=== PATIENT | female | born 1945 | race Two or more races ===

== ENCOUNTER 2020-07-27 04:24 | Emergency (ER) | payer MEDICARE, OTHER ==
[~2020-07-27] VITALS: Ht 152.4 cm; Wt 74.8 kg
[2020-07-27 04:38] VITALS: BP 144/72
== END 2020-07-27 07:02 | disposition home or self-care (01) ==
LOC: ER 04:27
DX: R04.0 Epistaxis (principal); I10 Essential (primary) hypertension; E11.9 Type 2 diabetes mellitus without complications; E03.9 Hypothyroidism, unspecified; E78.00 Pure hypercholesterolemia, unspecified; Z60.2 Problems related to living alone

== ENCOUNTER 2021-07-08 13:36 | Inpatient (IN) | payer MEDICARE, OTHER ==
[~2021-07-08] VITALS: Ht 152.4 cm; Wt 72.8 kg
[2021-07-08] MEDS ORDERED: ENALAPRILAT DIHYD. (2.5MG/2ML) 1.25 MG/ML VIAL IV ONE (14:30)
[2021-07-08 14:31] LABS: BASOPHILS # (AUTO) 0.1 K/uL (0.0-0.2); BASOPHILS % (AUTO) 0.5 % (0.0-2.0); EOSINOPHILS % (AUTO) 0.7 % (0.0-6.0); HEMATOCRIT 39 % (33-45); HEMOGLOBIN 12.5 g/dL (11.5-14.8); LYMPHOCYTES # (AUTO) 1.9 K/uL (0.8-4.8); LYMPHOCYTES % (AUTO) 19.1 % (20.0-44.0); MEAN CORPUSCULAR HGB CONC 33 g/dl (31.0-36.0); MEAN CORPUSCULAR VOLUME 77 fL (82-100); MONOCYTES # (AUTO) 0.5 K/uL (0.1-1.30); MONOCYTES % (AUTO) 5.1 % (2.0-12.0); NEUTROPHILS # (AUTO) 7.4 K/uL (1.8-8.9); NEUTROPHILS % (AUTO) 74.6 % (43.0-81.0); PLATELET COUNT (AUTO) 396 K/uL (150-450); RED BLOOD CELL COUNT(AUTO) 4.99 MIL/uL (4.0-5.2); WHITE BLOOD COUNT (AUTO) 9.9 K/uL (4.3-11.0)
[2021-07-08] MEDS ORDERED: ENALAPRILAT INJ (1.25 MG/ML) 1.25 MG/ML VIAL IV ONE ×2 (14:32→17:28)
[2021-07-08 15:23] LABS: ALANINE AMINOTRANSFERASE 18 U/L (12-78); ALBUMIN 3.8 g/dL (3.4-5.0); ALKALINE PHOSPHATASE 107 U/L (46-116); ASPARTATE AMINOTRANSFERASE 16 U/L (15-37); BILIRUBIN,DIRECT 0.1 mg/dL (0.0-0.2); BILIRUBIN,TOTAL 0.4 mg/dL (0.2-1.0); CALCIUM, SERUM 9.3 mg/dL (8.5-10.1); CARBON DIOXIDE 27 mmol/L (21-32); CHLORIDE 101 mmol/L (98-107); CREATININE 0.9 mg/dL (0.6-1.3); GLUCOSE 127 mg/dL (74-106); POTASSIUM 3.5 mmol/L (3.5-5.1); SODIUM SERUM 136 mmol/L (136-145); TOTAL PROTEIN, SERUM 8.5 g/dL (6.4-8.2); UREA NITROGEN, BLOOD 14 mg/dL (7-18)
[2021-07-08] MEDS ORDERED: DULA1.5P SQ (15:42)
[2021-07-08] MEDS ORDERED: HYDR25TA4 PO (15:42)
[2021-07-08] MEDS ORDERED: ROSU20TA32 PO (15:42)
[2021-07-08] MEDS ORDERED: EZET10TA32 PO (15:42)
[2021-07-08] MEDS ORDERED: TOLT4CAP14 PO (15:42)
[2021-07-08] MEDS ORDERED: METF-440 PO (15:42)
[2021-07-08] MEDS ORDERED: CLON0.2T PO (15:42)
[2021-07-08] MEDS ORDERED: ERGO500093 PO (15:42)
[2021-07-08] MEDS ORDERED: FLUT1DIS3 INH (15:42)
[2021-07-08] MEDS ORDERED: CHLO500T3 PO (15:42)
[2021-07-08] MEDS ORDERED: OMEP1CAP25 PO (15:42)
[2021-07-08] MEDS ORDERED: ASPI-1420 PO (15:42)
[2021-07-08] MEDS ORDERED: MECL-159 PO (15:42)
[2021-07-08] MEDS ORDERED: ICOS1CAP PO (15:42)
[2021-07-08] MEDS ORDERED: LINA145C PO (15:42)
[2021-07-08] MEDS ORDERED: GABA-532 PO (15:42)
[2021-07-08] MEDS ORDERED: INSU100V11 SQ (15:42)
[2021-07-08] MEDS ORDERED: DONE5TAB34 PO (15:42)
[2021-07-08] MEDS ORDERED: MAG HYDROX/AL HYDROX/SIMETH 30 ML UDC PO PRN (17:30)
[2021-07-08] MEDS ORDERED: ONDANSETRON HCL/PF 4 MG/2 ML VIAL IVP PRN (17:30)
[2021-07-08] MEDS ORDERED: DEXTROSE 50%-WATER 50 ML DISP.SYRIN IV PRN (17:30)
[2021-07-08] MEDS: BLOOD SUGAR DIAGNOSTIC 1 EACH STRIP VI SCH ×3 (17:30→23:14)
[2021-07-08] MEDS ORDERED: MAGNESIUM HYDROXIDE 30 ML UDC PO PRN (17:30)
[2021-07-08] MEDS ORDERED: BLOOD SUGAR DIAGNOSTIC 1 EACH STRIP IN SCH ×2 (17:30→18:00)
[2021-07-08] MEDS ORDERED: ENALAPRILAT INJ (1.25 MG/ML) 1.25 MG/ML VIAL IV PRN (17:30)
[2021-07-08] MEDS ORDERED: ASPIRIN 300 MG/SUPP.RECT RC ONE ×2 (17:30→18:00)
[2021-07-08] MEDS ORDERED: ASPIRIN 325 MG TABLET PO ONE (17:30)
[2021-07-08] MEDS ORDERED: hydrALAZINE HCL IV 20 MG VIAL IV PRN (17:30)
[2021-07-08] MEDS ORDERED: hydrALAZINE HCL IV 20 MG VIAL ONE (18:24)
[2021-07-08] MEDS ORDERED: Z GUARD REMEDY 4 OZ OINT TP PRN (19:30)
[2021-07-08] MEDS ORDERED: ENALAPRILAT DIHYD. (2.5MG/2ML) 1.25 MG/ML VIAL IV PRN (19:30)
[2021-07-08 21:00] VITALS: BP 158/87
[2021-07-08] MEDS: NIFEdipine XL (30MG) 30 MG TAB PO SCH (21:30)
[2021-07-08] MEDS: ENOXAPARIN SODIUM 40 MG/0.4 ML DISP.SYRIN SQ SCH (21:34)
[2021-07-09] VITALS (16 sets, daily range): BP systolic 151–220; BP diastolic 79–119
[2021-07-09] MEDS ORDERED: LABETALOL HCL IV 100MG VIAL IV ONE
[2021-07-09 06:17] LABS: BASOPHILS % (AUTO) 0.3 % (0.0-2.0); EOSINOPHILS % (AUTO) 0.1 % (0.0-6.0); HEMATOCRIT 36 % (33-45); HEMOGLOBIN 11.5 g/dL (11.5-14.8); LYMPHOCYTES # (AUTO) 1.9 K/uL (0.8-4.8); LYMPHOCYTES % (AUTO) 16.7 % (20.0-44.0); MEAN CORPUSCULAR HGB CONC 32 g/dl (31.0-36.0); MEAN CORPUSCULAR VOLUME 77 fL (82-100); MONOCYTES # (AUTO) 0.7 K/uL (0.1-1.30); MONOCYTES % (AUTO) 5.9 % (2.0-12.0); NEUTROPHILS # (AUTO) 8.8 K/uL (1.8-8.9); PLATELET COUNT (AUTO) 386 K/uL (150-450); RED BLOOD CELL COUNT(AUTO) 4.68 MIL/uL (4.0-5.2); WHITE BLOOD COUNT (AUTO) 11.5 K/uL (4.3-11.0)
[2021-07-09 06:22] LABS: PHOSPHORUS 4.7 mg/dL (2.5-4.9); POTASSIUM 3.7 mmol/L (3.5-5.1)
[2021-07-09] MEDS: BLOOD SUGAR DIAGNOSTIC 1 EACH STRIP VI SCH ×4 (06:30→22:09)
[2021-07-09] MEDS: INSULIN REGULAR, HUMAN 100 UNIT/ML 3 ML VIAL SQ PRN (06:35)
[2021-07-09] MEDS: BUDESONIDE RESPULE INH 0.5 MG/2 ML AMPUL.NEB NEB SCH ×2 (07:33→11:35)
[2021-07-09] MEDS: ALBUTEROL FS 2.5 MG/3 ML VIAL.NEB NEB SCH ×3 (07:34→19:50)
[2021-07-09] MEDS: DONEPEZIL 5 MG TABLET PO SCH (09:00)
[2021-07-09] MEDS: NIFEdipine XL (30MG) 30 MG TAB PO SCH (09:00)
[2021-07-09] MEDS: EZETIMIBE 10 MG TABLET PO SCH (09:00)
[2021-07-09] MEDS ORDERED: FLUTICASONE/SALMETEROL 1 DISK IH SCH (09:00)
[2021-07-09] MEDS: CLOPIDOGREL BISULFATE 75 MG TABLET PO SCH (09:00)
[2021-07-09] MEDS: ASPIRIN EC 81 MG TABLET.DR PO SCH (09:00)
[2021-07-09] MEDS: HYDROCHLOROTHIAZIDE 25 MG TABLET PO SCH (09:00)
[2021-07-09] MEDS ORDERED: GABAPENTIN 100 MG CAPSULE PO SCH (09:00)
[2021-07-09] MEDS ORDERED: LABETALOL HCL IV 100MG VIAL ONE (20:36)
[2021-07-09] MEDS: ENOXAPARIN SODIUM 40 MG/0.4 ML DISP.SYRIN SQ SCH (20:37)
[2021-07-09] MEDS: LABETALOL HCL IV 100MG VIAL IV PRN (20:57)
[2021-07-09] MEDS: ATORVASTATIN 10 MG TABLET PO SCH (22:00)
[2021-07-09] MEDS: *INSULIN REGULAR(HUMULIN R)HUM 100 UNIT/ML VIAL SQ PRN (22:07)
[2021-07-10] VITALS (48 sets, daily range): BP systolic 108–180; BP diastolic 64–107
[2021-07-10] MEDS: hydrALAZINE HCL IV 20 MG VIAL IV PRN ×2 (01:08→11:27)
[2021-07-10] MEDS: ALBUTEROL FS 2.5 MG/3 ML VIAL.NEB NEB SCH ×4 (01:56→19:28)
[2021-07-10] MEDS: LABETALOL HCL IV 100MG VIAL IV PRN (05:37)
[2021-07-10] MEDS: HYDROCHLOROTHIAZIDE 25 MG TABLET PO SCH (08:12)
[2021-07-10] MEDS: BLOOD SUGAR DIAGNOSTIC 1 EACH STRIP VI SCH ×4 (08:12→21:25)
[2021-07-10] MEDS: DONEPEZIL 5 MG TABLET PO SCH (08:41)
[2021-07-10] MEDS: ASPIRIN EC 81 MG TABLET.DR PO SCH (08:41)
[2021-07-10] MEDS: EZETIMIBE 10 MG TABLET PO SCH (08:41)
[2021-07-10] MEDS: CLOPIDOGREL BISULFATE 75 MG TABLET PO SCH (08:41)
[2021-07-10] MEDS: NIFEdipine XL (30MG) 30 MG TAB PO SCH (08:42)
[2021-07-10] MEDS: BUDESONIDE RESPULE INH 0.5 MG/2 ML AMPUL.NEB NEB SCH ×2 (08:43→17:06)
[2021-07-10] MEDS: *INSULIN REGULAR(HUMULIN R)HUM 100 UNIT/ML VIAL SQ PRN ×2 (09:35→21:26)
[2021-07-10 10:04] LABS: BASOPHILS # (AUTO) 0.1 K/uL (0.0-0.2); BASOPHILS % (AUTO) 0.5 % (0.0-2.0); EOSINOPHILS % (AUTO) 0.2 % (0.0-6.0); HEMATOCRIT 36 % (33-45); HEMOGLOBIN 11.5 g/dL (11.5-14.8); LYMPHOCYTES % (AUTO) 18.6 % (20.0-44.0); MEAN CORPUSCULAR HGB CONC 32 g/dl (31.0-36.0); MEAN CORPUSCULAR VOLUME 77 fL (82-100); MONOCYTES # (AUTO) 0.7 K/uL (0.1-1.30); MONOCYTES % (AUTO) 6.5 % (2.0-12.0); NEUTROPHILS # (AUTO) 8.1 K/uL (1.8-8.9); NEUTROPHILS % (AUTO) 74.2 % (43.0-81.0); PLATELET COUNT (AUTO) 393 K/uL (150-450); RED BLOOD CELL COUNT(AUTO) 4.61 MIL/uL (4.0-5.2); WHITE BLOOD COUNT (AUTO) 10.9 K/uL (4.3-11.0)
[2021-07-10 10:09] LABS: CALCIUM, SERUM 9.2 mg/dL (8.5-10.1); CREATININE 1.1 mg/dL (0.6-1.3); POTASSIUM 3.6 mmol/L (3.5-5.1)
[2021-07-10] MEDS: INSULIN REGULAR, HUMAN 100 UNIT/ML 3 ML VIAL SQ PRN ×3 (12:00→18:14)
[2021-07-10] MEDS: ENOXAPARIN SODIUM 40 MG/0.4 ML DISP.SYRIN SQ SCH (18:12)
[2021-07-10] MEDS: ATORVASTATIN 10 MG TABLET PO SCH (21:10)
[2021-07-11] VITALS (19 sets, daily range): BP systolic 93–194; BP diastolic 60–86
[2021-07-11] MEDS: ALBUTEROL FS 2.5 MG/3 ML VIAL.NEB NEB SCH ×5 (01:30→19:35)
[2021-07-11] MEDS: IV NS 0.9% 1,000 ML IV PRN ×2 (02:59→11:50)
[2021-07-11] MEDS: BLOOD SUGAR DIAGNOSTIC 1 EACH STRIP VI SCH ×4 (07:46→22:12)
[2021-07-11] MEDS: BUDESONIDE RESPULE INH 0.5 MG/2 ML AMPUL.NEB NEB SCH ×2 (08:00→13:02)
[2021-07-11 08:29] LABS: BASOPHILS # (AUTO) 0.1 K/uL (0.0-0.2); BASOPHILS % (AUTO) 0.7 % (0.0-2.0); EOSINOPHILS % (AUTO) 0.8 % (0.0-6.0); HEMATOCRIT 32 % (33-45); HEMOGLOBIN 10.5 g/dL (11.5-14.8); LYMPHOCYTES # (AUTO) 2.4 K/uL (0.8-4.8); LYMPHOCYTES % (AUTO) 21.8 % (20.0-44.0); MEAN CORPUSCULAR HGB CONC 33 g/dl (31.0-36.0); MEAN CORPUSCULAR VOLUME 78 fL (82-100); MONOCYTES # (AUTO) 1.1 K/uL (0.1-1.30); MONOCYTES % (AUTO) 9.6 % (2.0-12.0); NEUTROPHILS # (AUTO) 7.4 K/uL (1.8-8.9); NEUTROPHILS % (AUTO) 67.1 % (43.0-81.0); PLATELET COUNT (AUTO) 376 K/uL (150-450); RED BLOOD CELL COUNT(AUTO) 4.13 MIL/uL (4.0-5.2)
[2021-07-11 08:42] LABS: CALCIUM, SERUM 8.9 mg/dL (8.5-10.1); CREATININE 1.2 mg/dL (0.6-1.3); POTASSIUM 3.7 mmol/L (3.5-5.1)
[2021-07-11] MEDS: HYDROCHLOROTHIAZIDE 25 MG TABLET PO SCH (09:00)
[2021-07-11] MEDS: NIFEdipine XL (30MG) 30 MG TAB PO SCH (09:00)
[2021-07-11] MEDS: ASPIRIN EC 81 MG TABLET.DR PO SCH (09:37)
[2021-07-11] MEDS: CLOPIDOGREL BISULFATE 75 MG TABLET PO SCH (09:37)
[2021-07-11] MEDS: DONEPEZIL 5 MG TABLET PO SCH (09:37)
[2021-07-11] MEDS: EZETIMIBE 10 MG TABLET PO SCH (09:40)
[2021-07-11] MEDS: INSULIN REGULAR, HUMAN 100 UNIT/ML 3 ML VIAL SQ PRN (12:24)
[2021-07-11] MEDS: ATORVASTATIN 10 MG TABLET PO SCH (21:04)
[2021-07-11] MEDS: ENOXAPARIN SODIUM 40 MG/0.4 ML DISP.SYRIN SQ SCH (21:07)
[2021-07-11] MEDS: hydrALAZINE HCL IV 20 MG VIAL IV PRN (21:08)
[2021-07-11] MEDS: *INSULIN REGULAR(HUMULIN R)HUM 100 UNIT/ML VIAL SQ PRN (22:13)
[2021-07-12] VITALS (11 sets, daily range): BP systolic 164–195; BP diastolic 68–93
[2021-07-12] MEDS: ALBUTEROL FS 2.5 MG/3 ML VIAL.NEB NEB SCH ×4 (02:05→20:06)
[2021-07-12 06:34] LABS: BASOPHILS # (AUTO) 0.1 K/uL (0.0-0.2); BASOPHILS % (AUTO) 0.6 % (0.0-2.0); EOSINOPHILS % (AUTO) 1.7 % (0.0-6.0); HEMATOCRIT 32 % (33-45); HEMOGLOBIN 10.2 g/dL (11.5-14.8); LYMPHOCYTES % (AUTO) 19.5 % (20.0-44.0); MEAN CORPUSCULAR HGB CONC 32 g/dl (31.0-36.0); MEAN CORPUSCULAR VOLUME 79 fL (82-100); MONOCYTES # (AUTO) 0.9 K/uL (0.1-1.30); MONOCYTES % (AUTO) 8.6 % (2.0-12.0); NEUTROPHILS # (AUTO) 7.1 K/uL (1.8-8.9); NEUTROPHILS % (AUTO) 69.6 % (43.0-81.0); PLATELET COUNT (AUTO) 338 K/uL (150-450); WHITE BLOOD COUNT (AUTO) 10.3 K/uL (4.3-11.0)
[2021-07-12 07:24] LABS: CALCIUM, SERUM 8.5 mg/dL (8.5-10.1); CREATININE 0.9 mg/dL (0.6-1.3); POTASSIUM 3.7 mmol/L (3.5-5.1)
[2021-07-12] MEDS: NIFEdipine XL (30MG) 30 MG TAB PO SCH (09:00)
[2021-07-12] MEDS: BUDESONIDE RESPULE INH 0.5 MG/2 ML AMPUL.NEB NEB SCH ×2 (09:00→17:00)
[2021-07-12] MEDS: HYDROCHLOROTHIAZIDE 25 MG TABLET PO SCH ×2 (09:00→17:34)
[2021-07-12] MEDS: CLOPIDOGREL BISULFATE 75 MG TABLET PO SCH (09:09)
[2021-07-12] MEDS: EZETIMIBE 10 MG TABLET PO SCH (09:09)
[2021-07-12] MEDS: DONEPEZIL 5 MG TABLET PO SCH (09:09)
[2021-07-12] MEDS: ASPIRIN EC 81 MG TABLET.DR PO SCH (09:09)
[2021-07-12] MEDS: BLOOD SUGAR DIAGNOSTIC 1 EACH STRIP VI SCH ×4 (09:19→22:20)
[2021-07-12] MEDS: INSULIN REGULAR, HUMAN 100 UNIT/ML 3 ML VIAL SQ PRN (12:44)
[2021-07-12] MEDS: hydrALAZINE HCL IV 20 MG VIAL IV PRN (13:05)
[2021-07-12] MEDS: ACETAMINOPHEN 325 MG TABLET PO PRN (15:45)
[2021-07-12] MEDS: ENOXAPARIN SODIUM 40 MG/0.4 ML DISP.SYRIN SQ SCH (19:55)
[2021-07-12] MEDS: LABETALOL HCL IV 100MG VIAL IV PRN (20:28)
[2021-07-12] MEDS: ATORVASTATIN 10 MG TABLET PO SCH (22:14)
[2021-07-12] MEDS: *INSULIN REGULAR(HUMULIN R)HUM 100 UNIT/ML VIAL SQ PRN (22:24)
[2021-07-13] MEDS: ALBUTEROL FS 2.5 MG/3 ML VIAL.NEB NEB SCH ×4 (01:09→19:13)
[2021-07-13 04:23] VITALS: BP 185/80
[2021-07-13] MEDS: LABETALOL HCL IV 100MG VIAL IV PRN (04:27)
[2021-07-13] MEDS: ACETAMINOPHEN 325 MG TABLET PO PRN (04:34)
[2021-07-13 08:00] VITALS: BP 152/74
[2021-07-13] MEDS ORDERED: NIFEdipine XL (30MG) 30 MG TAB PO SCH (09:00)
[2021-07-13] MEDS: BUDESONIDE RESPULE INH 0.5 MG/2 ML AMPUL.NEB NEB SCH ×2 (09:00→17:56)
[2021-07-13] MEDS: EZETIMIBE 10 MG TABLET PO SCH (09:26)
[2021-07-13] MEDS: ASPIRIN EC 81 MG TABLET.DR PO SCH (09:26)
[2021-07-13] MEDS: DONEPEZIL 5 MG TABLET PO SCH (09:26)
[2021-07-13] MEDS: NIFEdipine XL (30MG) 30 MG TAB PO SCH (09:27)
[2021-07-13] MEDS: CLOPIDOGREL BISULFATE 75 MG TABLET PO SCH (09:27)
[2021-07-13] MEDS: INSULIN REGULAR, HUMAN 100 UNIT/ML 3 ML VIAL SQ PRN ×2 (09:41→12:24)
[2021-07-13] MEDS: BLOOD SUGAR DIAGNOSTIC 1 EACH STRIP VI SCH ×4 (09:42→21:40)
[2021-07-13] MEDS ORDERED: ATOR10TA PO (09:52)
[2021-07-13] MEDS ORDERED: CLOP75TA15 PO (09:52)
[2021-07-13] MEDS ORDERED: NIFE-35 PO (09:52)
[2021-07-13] MEDS ORDERED: LISI-768 PO (09:52)
[2021-07-13] MEDS: LISINOPRIL (5MG) 5 MG TABLET PO SCH (10:00)
[2021-07-13 12:00] VITALS: BP 92/52
[2021-07-13 16:00] VITALS: BP 120/61
[2021-07-13 17:44] VITALS: BP 111/61
[2021-07-13 20:00] VITALS: BP 141/66
[2021-07-13] MEDS: ENOXAPARIN SODIUM 40 MG/0.4 ML DISP.SYRIN SQ SCH (20:05)
[2021-07-13] MEDS: ATORVASTATIN 10 MG TABLET PO SCH (21:40)
[2021-07-14] VITALS: BP 134/82
[2021-07-14] MEDS: ALBUTEROL FS 2.5 MG/3 ML VIAL.NEB NEB SCH ×4 (00:55→20:00)
[2021-07-14 04:00] VITALS: BP 134/68
[2021-07-14 06:29] LABS: BASOPHILS # (AUTO) 0.1 K/uL (0.0-0.2); BASOPHILS % (AUTO) 0.6 % (0.0-2.0); EOSINOPHILS % (AUTO) 2.4 % (0.0-6.0); HEMATOCRIT 32 % (33-45); HEMOGLOBIN 10.4 g/dL (11.5-14.8); LYMPHOCYTES # (AUTO) 1.8 K/uL (0.8-4.8); LYMPHOCYTES % (AUTO) 19.3 % (20.0-44.0); MEAN CORPUSCULAR HGB CONC 33 g/dl (31.0-36.0); MEAN CORPUSCULAR VOLUME 78 fL (82-100); MONOCYTES # (AUTO) 0.8 K/uL (0.1-1.30); MONOCYTES % (AUTO) 8.9 % (2.0-12.0); NEUTROPHILS # (AUTO) 6.4 K/uL (1.8-8.9); NEUTROPHILS % (AUTO) 68.8 % (43.0-81.0); PLATELET COUNT (AUTO) 384 K/uL (150-450); RED BLOOD CELL COUNT(AUTO) 4.09 MIL/uL (4.0-5.2); WHITE BLOOD COUNT (AUTO) 9.4 K/uL (4.3-11.0)
[2021-07-14 07:00] LABS: CALCIUM, SERUM 9.3 mg/dL (8.5-10.1); CREATININE 0.9 mg/dL (0.6-1.3); POTASSIUM 3.4 mmol/L (3.5-5.1)
[2021-07-14] MEDS: BLOOD SUGAR DIAGNOSTIC 1 EACH STRIP VI SCH ×3 (07:28→18:18)
[2021-07-14 08:00] VITALS: BP 158/73
[2021-07-14] MEDS: BUDESONIDE RESPULE INH 0.5 MG/2 ML AMPUL.NEB NEB SCH ×2 (08:02→14:04)
[2021-07-14] MEDS: CLOPIDOGREL BISULFATE 75 MG TABLET PO SCH (08:22)
[2021-07-14] MEDS: EZETIMIBE 10 MG TABLET PO SCH (08:22)
[2021-07-14] MEDS: ASPIRIN EC 81 MG TABLET.DR PO SCH (08:22)
[2021-07-14] MEDS: DONEPEZIL 5 MG TABLET PO SCH (08:23)
[2021-07-14] MEDS: HYDROCHLOROTHIAZIDE 25 MG TABLET PO SCH (08:23)
[2021-07-14] MEDS: NIFEdipine XL (30MG) 30 MG TAB PO SCH (08:23)
[2021-07-14] MEDS: LISINOPRIL (5MG) 5 MG TABLET PO SCH (08:24)
[2021-07-14] MEDS ORDERED: POTASSIUM CHLORIDE 20 MEQ POWDER PACKET PO SCH (10:00)
[2021-07-14] MEDS: INSULIN REGULAR, HUMAN 100 UNIT/ML 3 ML VIAL SQ PRN ×2 (11:53→18:13)
[2021-07-14 12:00] VITALS: BP 108/58
[2021-07-14 16:00] VITALS: BP 123/59
[2021-07-14] MEDS: ENOXAPARIN SODIUM 40 MG/0.4 ML DISP.SYRIN SQ SCH (20:05)
[2021-07-15] MEDS ORDERED: LISINOPRIL (5MG) 5 MG TABLET PO SCH (09:00)
== END 2021-07-14 20:45 | DRG 65 ==
LOC: ER 13:39 → TRANSITION 18:52 → TELE 20:04 → ICU 07-10 00:17 → TELE 07-11 11:46
PROVIDERS: ADMIT Internal Medicine; ATTEND Internal Medicine
PROC: 05H933Z Insertion of Infusion Device into Right Brachial Vein, Percutaneous Approach (ICD-10-PCS; principal; 2021-07-10)
DX: I63.9 Cerebral infarction, unspecified (principal); G81.91 Hemiplegia, unspecified affecting right dominant side; I16.0 Hypertensive urgency; I10 Essential (primary) hypertension; E78.00 Pure hypercholesterolemia, unspecified; E78.5 Hyperlipidemia, unspecified; E11.40 Type 2 diabetes mellitus with diabetic neuropathy, unspecified; E03.9 Hypothyroidism, unspecified; Z79.82 Long term (current) use of aspirin; Z79.4 Long term (current) use of insulin; Z79.84 Long term (current) use of oral hypoglycemic drugs; Z79.899 Other long term (current) drug therapy; R47.01 Aphasia; Z79.51 Long term (current) use of inhaled steroids; E66.9 Obesity, unspecified; Z68.31 Body mass index [BMI] 31.0-31.9, adult; R13.10 Dysphagia, unspecified
CPT/HCPCS: 36410; 36415; 70450-TC; 70551-TC; 71045-TC; 80048-TC; 80076-TC; 82962-TC; 83735-TC; 84100-TC; 84484-TC; 85025-TC; 85730-TC; 87081-TC; 92507-TC; 92521; 92526; 92611-TC; 93307-TC; 93880-TC; 94799-TC; 97110-TC; 97112-TC; 97530-TC; C9803; G0378; J0360; J1650; J1815; J2405; J3490; J7030